=== PATIENT | male | born 1935 | race Caucasian/White ===

== ENCOUNTER 2017-07-08 18:27 | Emergency (ER) | payer MEDICARE, OTHER ==
[2017-07-08 18:58] LABS: #Lymphocytes 0.8 thou/uL (1.20-3.40); #Monocytes 1.4 thou/uL (0.11-0.59); #Neutrophils 17.5 thou/uL (1.40-6.50); %Basophils 0.2 % (0.0-1.0); %Lymphocytes 4.2 % (21.0-51.0); %Monocytes 7.2 % (0.0-10.0); Hematocrit 43.9 % (42.0-52.0); Red Blood Cell (RBC) Count 4.77 mill/uL (4.70-6.10); White Blood Cell (WBC) Count 19.8 thou/uL (4.8-10.8)
[2017-07-08 19:15] LABS: ALT (SGPT) 7 U/L (8-55); AST (SGOT) 15 U/L (5-34); Alkaline Phosphatase 84 U/L (40-150); Anion Gap 14 mmol/L (10-20); BUN (Urea Nitrogen) 21 mg/dL (8.4-25.7); Bilirubin, Total 1.3 mg/dL (0.2-1.2); Calc. Creatinine Clearance 0 mL/min (70-130); Calcium 9.7 mg/dL (7.8-10.44); Carbon Dioxide 27 mmol/L (23-31); Chloride 104 mmol/L (98-107); Estimated GFR-MDRD 54; Globulin 3.1 g/dL (2.4-3.5); Lipase 13 U/L (8-78); Protein, Total 7.3 g/dL (5.8-8.1)
[2017-07-08 19:16] LABS: Acetaminophen Less than 6.0 mcg/mL (10.0-30.0); CK (CPK) 73 U/L (30-200); Salicylate Less than 8.0 mg/dL (15.0-30.0)
[2017-07-08 19:22] LABS: Troponin I Less than 0.010 ng/mL (< 0.028)
[2017-07-08 19:36] LABS: Lactic Acid - Sepsis 1.7 mmol/L (0.5-2.2)
[2017-07-08 19:58] LABS: Bilirubin Moderate (Negative); Blood, Urine Trace (Negative); Glucose, Urine (Dipstick) Negative (Negative); Ketone, Urine 15 mg/dL (Negative); Nitrite Negative (Negative); Protein, Urine (Dipstick) 30 mg/dL (Neg-Trace)
[2017-07-08 20:00] LABS: Squamous Epithelial 0-3 HPF (0-3)
[2017-07-08 20:07] LABS: Amphetamine Not Detected (NotDetected); Methadone Not Detected (NotDetected); Methamphetamine Not Detected (NotDetected)
[2017-07-08 20:09] LABS: Bacteria/HPF Rare-Few HPF (None Seen); Hyaline Casts/LPF 0-3 HYALINE CAST LPF (0-3 Hyaline); Renal Epithelial None Seen HPF (0-3); Transitional Epithelial 0-3 HPF (0-3)
--- NOTE | 2017-07-08 20:47 | RAD ---
CHEST ONE VIEW: History: Altered mental status. Comparison: 02-04-15 FINDINGS: Upper normal cardiac silhouette. There is atherosclerosis of the aorta. The pulmonary vessels and hi lum are normal. Hyperinflation with chronic changes. No masses or consolidation. No pneumothorax or osseous abnormalities. IMPRESSION: 1. Atherosclerosis. 2. Chronic changes. 3. No acute cardiopulmonary process. POS: [facility]
--- NOTE | 2017-07-08 20:56 | CT ---
NONCONTRAST HEAD CT: Comparison: 02-04-15 History: Altered mental status. Technique: Noncontrast head CT is performed from skull base to skull vertex. FINDINGS: No parenchymal hemorrhage. No extraaxial hematoma. No midline shift. Basilar cisterns are patent. Ag e appropriate atrophy. Cortical dietz white matter differentiation is preserved. Ventricles and sulci are patent and symmetric. White matter hypodensity due to chronic small vessel ischemic changes are noted. Calvarium is intact. Adequate aeration of the sinuses and mastoid air cells. IMPRESSION: 1. No acute intracranial process. 2. Age appropriate atrophy. 3. Chronic small vessel ischemic changes of the white matter. POS: [facility]
--- NOTE | 2017-08-04 16:14 | EKG ---
Test Reason : AMS Blood Pressure : / mmHG Vent. Rate : 073 BPM Atrial Rate : 073 BPM P-R Int : 180 ms QRS Dur : 084 ms QT Int : 402 ms P-R-T Axes : 082 059 099 degrees QTc Int : 442 ms Normal sinus rhythm Left ventricular hypertrophy with repolarization abnormality Abnormal ECG Confirmed by ELIZABETH STEARNS, GM Max ([id number]), editor in chief newspaper ZORA NORIEGA ([id number]) on 08/04/2017 4:14:05 PM Referred By: Confirmed By:GM JOHNSON MD
== END 2017-07-08 22:41 | disposition home or self-care (01) ==
LOC: ERS 18:27
DX: N39.0 Urinary tract infection, site not specified (principal); G30.9 Alzheimer's disease, unspecified; F02.80 Dementia in other diseases classified elsewhere, unspecified severity, without behavioral disturbance, psychotic disturbance, mood disturbance, and anxiety; E78.5 Hyperlipidemia, unspecified; F32.9 Major depressive disorder, single episode, unspecified
CPT/HCPCS: 51701; 70450; 71010; 80053; 80306; 80307; 81003; 81015; 82553; 83605; 83690; 84443; 84484; 85025; 87040; 87086; 93005; 94760

== ENCOUNTER 2018-07-09 09:17 | Emergency (ER) | payer MEDICARE, OTHER ==
[2018-07-09] MEDS ORDERED: Bacitracin Zinc 1 Packet ONE ×2 (09:34)
[2018-07-09] MEDS ORDERED: Lidocaine 1% PF 5 ML VIAL ONE (09:44)
[2018-07-09 09:52] LABS: #Basophils 0.1 thou/uL (0.0-0.2); #Eosinphils 0.1 thou/uL (0.0-0.7); #Lymphocytes 1.3 thou/uL (1.20-3.40); #Monocytes 0.7 thou/uL (0.11-0.59); #Neutrophils 7.8 thou/uL (1.40-6.50); %Basophils 0.8 % (0.0-1.0); %Eosinophils 0.7 % (0.0-10.0); %Lymphocytes 12.7 % (21.0-51.0); %Monocytes 7.2 % (0.0-10.0); %Neutrophils 78.7 % (42.0-75.0); Hemoglobin 12.3 g/dL (14.0-18.0); Mean Corpuscular HGB CONC 30.9 g/dL (32.0-36.0); Mean Corpuscular Hemoglobin 28.8 pg (27.0-31.0); Mean Corpuscular Volume 92.9 fL (78.0-98.0); Mean Platelet Volume 9.1 fL (7.4-10.4); Platelet Count 150 thou/uL (130-400); RBC Distribution Width 12.5 % (11.5-14.5); Red Blood Cell (RBC) Count 4.29 mill/uL (4.70-6.10); White Blood Cell (WBC) Count 9.9 thou/uL (4.8-10.8)
[2018-07-09 10:17] LABS: ALT (SGPT) 11 U/L (8-55); AST (SGOT) 19 U/L (5-34); Albumin 3.8 g/dL (3.4-4.8); Alkaline Phosphatase 96 U/L (40-150); Anion Gap 9 mmol/L (10-20); BUN (Urea Nitrogen) 26 mg/dL (8.4-25.7); Bilirubin, Total 0.7 mg/dL (0.2-1.2); Calc. Creatinine Clearance 0 mL/min (70-130); Carbon Dioxide 27 mmol/L (23-31); Chloride 109 mmol/L (98-107); Estimated GFR-MDRD 67; Globulin 2.3 g/dL (2.4-3.5); Glucose 119 mg/dL (83-110); Protein, Total 6.1 g/dL (5.8-8.1); Sodium 141 mmol/L (136-145)
[2018-07-09 10:24] LABS: CKMB 2.1 ng/mL (0-6.6)
[2018-07-09] MEDS ORDERED: Adacel (T-DAP) 0.5 ML VIAL ONE (10:43)
--- NOTE | 2018-07-09 10:52 | CT ---
CT HEAD WITHOUT CONTRAST: Technique: Multiple contiguous axial images were obtained through the head without IV enhancement. Indications: Fall at group home. Contusions to face. Comparison: 07-08-17 FINDINGS: Cortical volume loss appears stable. Associated ventriculomegaly corresponds to the degree of atrophy . There is no evidence of intracranial hemorrhage. No mass, edema, or evidence of acute infarct. Slig ht increased extraaxial CSF along the left frontal lobe laterally is stable from the prior study. The sinuses and mastoids are well aerated. Skin petra are seen in the right scalp. IMPRESSION: No acute intracranial abnormality identified. POS: [facility]
--- NOTE | 2018-07-09 11:13 | CT ---
CT CERVICAL SPINE WITHOUT CONTRAST: HISTORY: Fall at [facility] with neck pain. COMPARISON: None. TECHNIQUE: Multiple contiguous axial images were obtained in a CT of the cervical spine without contrast. Sagit bertha and coronal reformats were performed. FINDINGS: Moderate degenerative changes are seen in the cervical spine. The vertebral bodies demonstrate yanna l height and alignment without acute fracture or subluxation. No prevertebral soft tissue swelling i s seen. The posterior facets are well aligned. Normal alignment of the skull base with the cervical spine is seen. Emphysematous changes are seen in the lung apices. IMPRESSION: Degenerative changes of the cervical spine without acute osseous abnormality. POS: [facility]
[2018-07-09 11:15] LABS: Bilirubin Negative (Negative); Blood, Urine Large (Negative); Clarity CLEAR (Clear); Glucose, Urine (Dipstick) Negative (Negative); Leukocyte Negative (Negative); Nitrite Negative (Negative); Protein, Urine (Dipstick) Negative (Neg-Trace); Specific Gravity, Urine 1.016 (1.002-1.036); pH, Urine 5.5 (5.0-9.0)
--- NOTE | 2018-07-09 11:17 | RAD ---
RIGHT ELBOW FOUR VIEWS: HISTORY: Right elbow pain after a fall. COMPARISON: None. FINDINGS: Four views of the right elbow show no evidence of acute fracture or dislocation. No elbow effusion i s seen. No degenerative changes are present. IMPRESSION: Unremarkable examination. POS: [facility]
[2018-07-09 11:19] LABS: Bacteria/HPF None Seen HPF (None Seen); Hyaline Casts/LPF 4-6 HYALINE CAST LPF (0-3 Hyaline); Pathc Cast-AUWi Flag 1.59 (0-2.49); RBC/HPF GREATER THAN 50-TNTC HPF (0-3); WBC/HPF 0-3 HPF (0-3)
[2018-07-09 11:42] LABS: Renal Epithelial None Seen HPF (0-3); Transitional Epithelial NONE SEEN HPF (0-3)
== END 2018-07-09 12:59 | disposition home or self-care (01) ==
LOC: ERS 09:17
DX: S01.01XA Laceration without foreign body of scalp, initial encounter (principal); F32.9 Major depressive disorder, single episode, unspecified; G30.9 Alzheimer's disease, unspecified; F02.80 Dementia in other diseases classified elsewhere, unspecified severity, without behavioral disturbance, psychotic disturbance, mood disturbance, and anxiety; M19.90 Unspecified osteoarthritis, unspecified site; E78.5 Hyperlipidemia, unspecified; Z79.1 Long term (current) use of non-steroidal anti-inflammatories (NSAID); Z79.899 Other long term (current) drug therapy; W19.XXXA Unspecified fall, initial encounter
CPT/HCPCS: 12002; 36415; 51701; 70450; 72125; 80053; 81003; 81015; 82553; 84484; 85025; 87086; 90471; 90715; 93005; J2001